=== PATIENT | female | born 1950 | race African-American/Black ===

== ENCOUNTER 2022-02-16 12:06 | Outpatient (CLI) | payer MEDICARE, OTHER, SELFPAY ==
--- NOTE | ~2022-02-16 | XR_ITS ---
XR foot LT standing 2V DATE: 02/16/2022 13:08 INDICATION: Rheumatoid arthritis with rheumatoid factor TECHNIQUE: Standing AP and lateral views COMPARISON: None FINDINGS: There is mild hallux valgus and bunion deformity. There is mild osteophyte is at the first metatarsophalangeal joint. No fracture, dislocation, periosteal reaction or bone destruction or erosive change is noted. IMPRESSION: Mild hallux valgus and bunion deformity Mild osteoarthritis at first metatarsophalangeal joint Reviewed, dictated and finalized at location A. [employer]
--- NOTE | ~2022-02-16 | XR_ITS ---
XR foot RT standing 2V DATE: 02/16/2022 13:08 INDICATION: Rheumatoid arthritis with rheumatoid factor TECHNIQUE: Standing AP and lateral views COMPARISON: None FINDINGS: There is hallux valgus and bunion deformity. There is mild osteophyte is at the first metatarsophalangeal joint. No fracture, dislocation, periosteal reaction or bone destruction or erosive change. IMPRESSION: Hallux valgus and bunion deformity Mild osteoarthritis at first metatarsophalangeal joint Reviewed, dictated and finalized at location A. [employer]
--- NOTE | ~2022-02-16 | XR_ITS ---
XR hand BI arthritis min 3V DATE: 02/16/2022 13:08 INDICATION: Rheumatoid arthritis with rheumatoid factor TECHNIQUE: 4 views of each hand COMPARISON: None FINDINGS: Right hand: There is mild osteoarthritis at the second and third metacarpophalangeal joints. There is osteophytic change at multiple interphalangeal joints, most prominently at the proximal interphalangeal joints o f the second and third digits. No fracture or dislocation, periosteal reaction or bone destruction, chondrocalcinosis or erosive leanna nge is noted. Left hand: There is minimal osteoarthritis at the second and third metacarpophalangeal joints and to a greater e xtent at some of the interphalangeal joints including first digit and proximal and distal interphalan geal joints of the second digit and proximal interphalangeal joint of the third digit, with soft tiss ue swelling at the latter. No fracture or dislocation, periosteal reaction or bone destruction, erosive change or chondrocalcino sis. IMPRESSION: Polyarticular osteoarthritis of both hands. No erosive changes or chondrocalcinosis are n oted Reviewed, dictated and finalized at location A. [employer] IMPRESSION: Polyarticular osteoarthritis of both hands. No erosive changes or c hondrocalcinosis are noted
--- NOTE | ~2022-02-16 | XR_ITS ---
XR chest 2V DATE: 02/16/2022 13:08 INDICATION: Rheumatoid arthritis. History of tuberculosis. TECHNIQUE: PA and lateral views COMPARISON: None FINDINGS: Normal heart size. Mild aortic unfolding. No hilar or mediastinal enlargement. No pulmonary infiltrate or consolidation, pleural effusion or pulmonary vascular congestion or pneumothorax. IMPRESSION: No active cardiopulmonary disease Reviewed, dictated and finalized at location A. [employer]
[2022-02-16 13:06] LABS: Basophils Percent Auto 0.2 % (0.2-1.2); Eosinophils Percent Auto 0.5 % (0-4.4); Hematocrit 38.5 % (37.0-47.0); Hemoglobin 12.6 g/dL (12.0-15.0); Immature Granulocyte Absolute 0.03 K/mm3 (0.00-0.031); Immature Granulocyte Percent A 0.5 % (0-0.5); Lymphocytes Absolute Auto 0.67 K/mm3 (0.9-3.2); Lymphocytes Percent Auto 11.8 % (18.3-44.2); Mean Corpuscular HGB Conc 32.7 g/dl (32-36); Mean Corpuscular Hemoglobin 30.5 pg (26-34); Mean Corpuscular Volume 93.2 fl (80-100); Mean Platelet Volume 9.5 fl (7.4-10.4); Monocytes Absolute Auto 0.3 K/mm3 (0.1-0.6); Monocytes Percent Auto 4.7 % (2.6-8.5); Neutrophils Absolute Auto 4.7 K/mm3 (1.3-6.7); Neutrophils Percent Auto 82.3 % (45.5-73.1); Platelet Count Result 328 k/mm3 (150-375); Red Blood Count 4.13 M/mm3 (4.2-5.4); Red Cell Distribution Width 13.3 % (11.5-14.5); White Blood Count 5.7 K/mm3 (4.5-10.0)
[2022-02-16 13:09] LABS: Uric Acid 4.2 mg/dL (2.5-7.5)
[2022-02-16 13:20] LABS: Appearance Urine Clear (Clear); Bilirubin Urine Negative (Negative); Blood Urine Trace-lysed (Negative); Color Urine Yellow (Yellow); Glucose Urine UA Negative (Negative); Ketones Urine Negative (Negative); Leukocyte Esterase Ur Negative LEU/UL (Negative); Nitrate Urine Negative (Negative); Protein Urine Negative (Negative); Urobilinogen Urine 0.2 mg/dL (<2.0)
[2022-02-16 13:38] LABS: Mucus Urine Rare /lpf; RBC Urine 0-2 /hpf (0-2); Squamous Epithelial Cell Urine Rare /hpf (Few); WBC Urine 0-3 /hpf
[2022-02-16 13:55] LABS: Rheumatoid Factor 28.3 IU/ML (<12)
[2022-02-16 14:11] LABS: Vitamin D 25 Hydroxy 67.8 ng/mL
[2022-02-16 14:24] LABS: Hepatitis B Surface Antigen Negative (Negative)
[2022-02-16 14:38] LABS: Add Urine Microscopic? YES
[2022-02-16 14:49] LABS: Hepatitis B Surface Anti Res Positive; Hepatitis C Virus Antibody Negative (Negative)
[2022-02-21 11:54] LABS: Anti Cyclic Citrullinated Pept >250 Units (<20)
[2022-02-22 11:25] LABS: SM Antibody <1.0; SM/RNP Antibody <1.0; SS-A <1.0; SS-B <1.0
== END 2022-02-16 12:07 | disposition home or self-care (01) ==
PROVIDERS: Visit Provider Internal Medicine
DX: M05.79 Rheumatoid arthritis with rheumatoid factor of multiple sites without organ or systems involvement (principal); M47.816 Spondylosis without myelopathy or radiculopathy, lumbar region; Z71.89 Other specified counseling; Z79.899 Other long term (current) drug therapy; Z22.7 Latent tuberculosis; M19.90 Unspecified osteoarthritis, unspecified site
CPT/HCPCS: 36415; 71046; 73130; 73620; 81001; 82306; 84550; 85025; 86038; 86039; 86140; 86200; 86225; 86235; 86430; 86706; 86803; 87340